=== PATIENT | female | born 1950 | race Caucasian/White ===

== ENCOUNTER → 2020-11-12 | Outpatient (CLI) | payer MEDICARE, BC ==
[~2020-11-12] MED LIST: ASPIR 8181 MG PO; FLINTSTONES1 EAC1 PO; HYDROCHLOROTHIA25 MG PO; LEVOTHYROXINE88 MCG PO; STOOL SOFTENER1 EACH PO; VIT D3 PO
== END ==
LOC: MAMO 11-06 09:30
DX: Z12.31 Encounter for screening mammogram for malignant neoplasm of breast (principal)
CPT/HCPCS: 77063; 77067